=== PATIENT | male | born 1955 | race African-American/Black ===

== ENCOUNTER 2021-04-01 13:32 | Inpatient (IN) | payer MEDICARE, SELFPAY ==
[2021-04-01] VITALS (10 sets, daily range): BP systolic 139–175; BP diastolic 73–90; PULSE 63–97; RESP 15–20; TEMP 36.7–37.2; O2SAT 96–100; BMI 28.0
--- NOTE | ~2021-04-01 | CT_ITS ---
EXAMINATION: CTA chest abdomen pelvis DATE: 04/01/2021 15:53 INDICATION: Chest and abdominal pain TECHNIQUE: Computed tomographic angiography (CTA) of the chest, abdomen, and pelvis was performed wit h 200 mL Omnipque-350 intravenous contrast. Maximum intensity projection 3D-reconstructions of the ao rta and other arteries were constructed by the technologist on a separate workstation. The dose-lengt h product (DLP) was 1050.13 mGy-cm. Automated exposure control and iterative reconstruction technique were employed. COMPARISON: None. FINDINGS: CHEST CTA: There is no aneurysm or dissection of the thoracic aorta. Calcified atherosclerosis is noted. There i s dependent atelectasis. No pleural effusion or pneumothorax is identified. No pathologically enlarge d thoracic lymph nodes are identified. The heart size is normal. There is mild thoracic spondylosis. ABDOMEN AND PELVIS CTA: There is no aneurysm or dissection of the abdominal aorta. There is calcified atherosclerosis of the aorta and many of the other arteries. The celiac axis, superior mesenteric artery, and inferior mesen teric artery are unremarkable. Single renal arteries are present bilaterally. Punctate calcifications in otherwise normal appearing liver and spleen likely represent healed granulomatous disease. The pa ncreas, gallbladder, and adrenal glands are normal. The kidneys are unremarkable. No pathologically e nlarged abdominal or pelvic lymph nodes are identified. There is no free intraperitoneal gas or evide nce of bowel obstruction. The appendix is normal. There is severe lumbar spondylosis. IMPRESSION: 1. No dissection or aneurysm of the thoracic or abdominal aorta. Reviewed, dictated and finalized at location A. ENT ACCOUNTS COORDINATOR
--- NOTE | ~2021-04-01 | MR_ITS ---
EXAMINATION: MR brain/brain stem wo/w con DATE: 04/02/2021 12:56 INDICATION: Right hemiparesis. TECHNIQUE: Magnetic resonance imaging (MRI) of the brain and brainstem was performed without and with 17 mL MultiHance intravenous contrast. Sequences included sagittal and axial T1-weighted FSE, axial diffusion-weighted FS EPI, axial T2*-weighted GRE, axial T2-weighted FLAIR Propeller, and axial T2-we ighted Propeller. Postcontrast sequences included axial and coronal T1-weighted FSE. Apparent diffusi on coefficient (ADC) maps were created. COMPARISON: Head CT 04/01/2021 FINDINGS: There are patchy infarcts involving the left frontal, parietal, and occipital lobes charact erized by decreased ADC. Some of the infarcts demonstrate contrast enhancement. There is no intracran ial hemorrhage or abnormal mass lesion. The ventricles are normal in size. There are scattered areas of nonspecific increased T2-weighted signal intensity in the cerebral white matter. The orbits are no rmal. The mastoid air cells are normal. There is mild mucosal thickening in the ethmoid sinuses. IMPRESSION: 1. Patchy acute and subacute infarcts in the left frontal, parietal, and occipital lobes. 2. Moderate nonspecific cerebral white matter disease, which likely represents chronic small vessel i schemic disease. Reviewed, dictated and finalized at location A. P CLERK IMPRESSION: 1. Patchy acute and subacute infarcts in the left frontal, parietal, and occipi khushbu lobes. 2. Moderate nonspecific cerebral white matter disease, which likely represents chronic small vessel ischemic disease.
--- NOTE | ~2021-04-01 | CT_ITS ---
EXAMINATION: CTA brain carotid DATE: 04/01/2021 15:52 INDICATION: Right upper and lower extremity weakness TECHNIQUE: Computed tomographic angiography (CTA) of the head was performed without and with 100 mL O mnipaque-350 intravenous contrast. CTA of the neck was performed with intravenous contrast. The dose- length product was 1687.07 mGy-cm. Maximum intensity projection and volume rendered 3D-reconstruction s were created by the technologist on a separate workstation. Automated exposure control and iterativ e reconstruction technique were employed. COMPARISON: None. FINDINGS: HEAD CTA: There is subtle low attenuation of the left garcia radiata. A focal area of aquino-white eliane er differentiation loss is seen in the left frontal lobe. There is no intracranial hemorrhage or abno rmal mass lesion. The ventricles are normal. There is no abnormal mass effect or midline shift. The b scar cisterns are patent. The orbits are normal. The paranasal sinuses, mastoids and calvarium are no rmal. There is no significant stenosis of the basilar artery or posterior cerebral arteries. There is no si gnificant stenosis of the intracranial internal carotid arteries or the anterior or middle cerebral a rteries. The anterior communicating artery and right posterior communicating arteries are normal. The left posterior communicating artery is diminutive. There is no aneurysm. NECK CTA: The thyroid gland is unremarkable. The submandibular and parotid glands are symmetric. Ther e is no lymphadenopathy. There are no masses identified. The airway is unremarkable. There is moderat e to severe lower cervical spondylosis.. The superior mediastinum is unremarkable. There is 0% stenosis of the proximal right internal carotid artery relative to normal distal artery l umen diameter (NASCET criteria). There is 0% stenosis of the proximal left internal carotid artery re lative to normal distal artery lumen diameter. IMPRESSION: 1. Findings suggestive of subtle acute infarct in the left frontal lobe. Unremarkable CTA. 2. 0% stenosis of the proximal right internal carotid artery relative to normal distal artery lumen d iameter (NASCET criteria). 3. 0% stenosis of the proximal left internal carotid artery relative to normal distal artery lumen di ameter. These findings were discussed with Dr. Kehinde Garcia MD in the Emergency Department at 1624 hours on 04/01/2021. Reviewed, dictated and finalized at location A. LABORER IMPRESSION: 1. Findings suggestive of subtle acute infarct in the left frontal lobe. Unrema rkable CTA. 2. 0% stenosis of the proximal right internal carotid artery relative to normal distal artery lumen diameter (NASCET criteria). 3. 0% stenosis of the proximal left internal carotid artery relative to normal distal artery lumen diameter. These findings were discussed with Dr. Kehinde Garcia MD in the Emergency Depar tment at 1624 hours on 04/01/2021.
--- NOTE | 2021-04-01 14:09 | ECG_ITS ---
Measurements Intervals [place] Rate: 63 P: -32 MO: 119 QRS: -38 QRSD: 181 T: 84 QT: 506 QTc: 521 Interpretive Statements SINUS RHYTHM WITH SHORT MO INTERVAL LEFT AXIS DEVIATION RIGHT BUNDLE BRANCH BLOCK LEFT VENTRICULAR HYPERTROPHY AND ST-T CHANGE BASELINE ARTIFACT- I, II, III, AVR, AVL, AVF, V1-V6 ABNORMAL ECG Electronically Signed On 04-01-2021 15:16:21 EMPLOYMENT AND CLAIMS AIDE by Trevor Rangel D.O.
--- NOTE | 2021-04-01 14:11 | ED.NEUROSD ---
HPI - Neuro Symptoms/Deficit General Chief Complaint: Suspected CVA Stated Complaint: think i had a little stroke on Saturday Time Seen by Provider: 04/01/21 13:51 Source: patient Mode of arrival: ambulatory Limitations: no limitations History of Present Illness HPI Narrative: 65-year-old male History of high blood pressure and high cholesterol Here for evaluation of new weakness in his right arm and to a lesser extent in his right leg which he first noticed upon waking up Saturday morning, 4 days ago He reports he is lost a lot of strength in his right shoulder and lost dexterity in his hand and feels like he might have a little bit of tingling in his 2 smallest fingers He also notices that his gait has gotten somewhat worse that he is walking with a limp It sounds like he was seen on Saturday afternoon and at that time the leg was less of an issue, and he was prescribed steroids for a possible neck issue He said on Saturday and Saturday that he had severe back pain as well, which is now largely resolved, he did not take anything specific for it He does not think that he could have injured it, he says that the heaviest thing he ever has to lift at work is small empty cardboard boxes He came to the ER today because of the worse issues with walking and lack of improvement in his weakness He does not have a headache Related Data Allergies Allergy/AdvReac Type Severity Reaction Status Date / Time quinine Allergy Unknown Verified 04/01/21 13:37 Review of Systems Review of Systems: All systems reviewed & are unremarkable except as noted in HPI and below Constitutional: Constitutional: Reports no additional constitutional complaints, Denies chills, Denies fever(s) and Denies headache(s) Eyes: Eyes: Reports no additional eye complaints, Denies change in vision and Denies diplopia ENT: Denies headache(s) and Denies sore throat Cardiovascular: Cardiovascular: Denies chest pain and Denies dyspnea Respiratory: Respiratory: Denies cough and Denies dyspnea Gastrointestinal: Gastrointestinal: Denies abdominal pain, Denies diarrhea and Denies vomiting Genitourinary: Genitourinary: Denies dysuria and Denies urinary frequency Musculoskeletal: Musculoskeletal: Reports back pain, Denies deformity, Denies arthralgias, Denies joint swelling and Denies numbness Integumentary/Breasts: Skin/Breast: Denies rash and Denies wounds Neurologic: Denies headache(s), Reports focal weakness, Denies loss of vision, Denies numbness and Reports paresthesias Psychiatric: Psychiatric: Reports no additional psychiatric complaints Endocrine: Endocrine: Reports no additional endocrine complaints Hematologic/Lymphatic: Hematologic/Lymphatic: Reports no additional hematologic/lymphatic complaints Allergic/Immunologic: Allergic/Immunologic: Reports no additional allergic/immunologic complaints Exam Const: General: cooperative and no acute distress Orientation/consciousness: patient oriented x3 (alert) HENMT: Head: normal to inspection, normocephalic and atraumatic Ears: external ears normal General nose exam: no epistaxis Eyes: Conjunctivae: conjunctivae normal EOM: EOMs intact bilaterally Neck: Neck: normal visual inspection, supple, no JVD and other (No bruit, no tenderness, no exacerbation of symptoms with neck movements) Resp: Effort & Inspection: normal respiratory effort and not labored Auscultation: clear to auscultation bilaterally, no rales, no rhonchi, no wheezes and other (BS =) Cardio: Rate: regular rate Rhythm: regular rhythm Heart sounds: no murmurs GI: GI Palp: Yes Soft to palpation and No Tenderness to palpation present (GI) Skin: General skin exam: normal color and no rashes or lesions noted Neuro: General: patient oriented x3 (alert) and moves all extremities Cranial nerves: Yes facial symmetry Speech: normal speech Motor exam (neuro): Abnormal motor strength present Other: Right upper extremity has proximal grea
[2021-04-01 14:43] LABS: Basophils Percent Auto 0.4 % (0.2-1.2); Eosinophils Percent Auto 0.2 % (0-4.4); Hematocrit 44.6 % (42.0-52.0); Hemoglobin 15.8 g/dL (14.0-18.0); Immature Granulocyte Absolute 0.03 K/mm3 (0.00-0.031); Immature Granulocyte Percent A 0.4 % (0-0.5); Lymphocytes Absolute Auto 0.88 K/mm3 (0.9-3.2); Lymphocytes Percent Auto 10.7 % (18.3-44.2); Mean Corpuscular HGB Conc 35.4 g/dl (32-36); Mean Corpuscular Hemoglobin 30.9 pg (26-34); Mean Corpuscular Volume 87.1 fl (80-100); Mean Platelet Volume 10.9 fl (7.4-10.4); Monocytes Absolute Auto 0.3 K/mm3 (0.1-0.6); Monocytes Percent Auto 3.3 % (2.6-8.5); Platelet Count Result 259 k/mm3 (150-375); Red Blood Count 5.12 M/mm3 (4.6-6.20); Red Cell Distribution Width 12.1 % (11.5-14.5); White Blood Count 8.3 K/mm3 (4.5-10.0)
[2021-04-01 14:49] LABS: Alanine Aminotransferase 47 U/L (4-50); Albumin Level 4.7 g/dL (3.5-5.1); Alkaline Phosphatase 106 U/L (38-126); Anion Gap 12 mmol/L (8-16); Aspartate Amino Transferase 39 U/L (17-59); Bilirubin,Total 0.6 mg/dL (0.2-1.3); Blood Urea Nitrogen 14 mg/dL (9-20); Carbon Dioxide 23 mmol/L (22-30); Chloride 106 mmol/L (98-107); Estimated CRCL calculation 59 ml/min; Estimated Glomerular Filt Rate > 60; Glucose 215 mg/dL (65-110); Potassium 3.8 mmol/L (3.4-5.0); Sodium 141 mmol/L (137-145)
--- NOTE | 2021-04-01 18:00 | PM.IMHP ---
H&P: HPI History of Present Illness Date/Time: 04/01/21 18:00 Chief Complaint: Right arm weakness. Narrative: This is a very pleasant 65-year-old male with hypertension and dyslipidemia who presented to the emergency department earlier today via private vehicle from home for evaluation of right arm weakness. He awoke from sleep on Saturday (4 days ago) with weakness in his right arm and hand as well as mild paresthesias and loss of dexterity. He also noticed that his right leg seemed to be a bit ?off? as well and he has been walking with a slight limp since that time. He was seen by his primary care provider the following day and there were concerns that he possibly had a cervical radiculopathy (his leg was less of an issue at that time). He was prescribed a Medrol Dosepak which he was unable to fill until yesterday as he had to save up some money for the co-pay. Unfortunately his symptoms have not improved and he came in today for evaluation. CTA of the head and neck showed findings suggestive of a subtle acute infarct in the left frontal lobe and he is being admitted in this setting. He admits that his blood pressures have been difficult to control although he thought with his current regimen that they had been more controlled. He denies headache, vertigo, auditory and visual changes, dysphagia, facial droop, and dysarthria. He denies palpitations. No history of cardiac dysrhythmia. Review of Systems Review of Systems: Twelve systems were reviewed. No fever, chills, or sweats. No recent cold or flu symptoms. Patient was having pretty significant mid to low back pain on Saturday and , not related to an injury, but that has since improved. No exertional chest pain or shortness of breath. No lower extremity paresthesias or saddle anesthesia. No history of diabetes. Denies blurry vision, polydipsia, and polyuria. No history of alcohol withdrawal symptoms. Except as documented, all other systems were reviewed and are negative. [facility] Past Medical History Medical History (Updated 04/01/21 @ 22:54 by Angelique Shaw PA-C) Asthma Dyslipidemia Gastroesophageal reflux disease Hypertension Surgical History Surgical History (Updated 04/01/21 @ 22:51 by Angelique Shaw PA-C) No history of previous surgery Family History Family History (Updated 04/01/21 @ 22:51 by Angelique Shaw PA-C) Mother , Mother in her sleep at age 51 of unknown causes. Asthma Father No problems noted. Social History Social History (Updated 04/01/21 @ 22:52 by Angelique Shaw PA-C) Social History: Surrogate decision maker: Joe Gray, srinivasa. Code status: Full code. Smoking status: Never smoker Alcohol intake: current Drinks per week: 21 Substance use: never Additional living arrangements comments: The patient lives in his own home. Meds Home Medications and Allergies Home Medications Medication Instructions Recorded Confirmed Type amlodipine 10 mg PO DAILY 04/01/21 04/01/21 History atorvastatin 10 mg PO DAILY 04/01/21 04/01/21 History calcium carbonate 600 mg PO Q6-8H PRN 04/01/21 04/01/21 History losartan 100 mg PO DAILY 04/01/21 04/01/21 History metoprolol succinate 100 mg PO DAILY 04/01/21 04/01/21 History Allergies Allergy/AdvReac Type Severity Reaction Status Date / Time quinine Allergy Unknown Verified 04/01/21 13:37 Vital Signs Vital Signs - 24 hr 04/01/21 13:33 04/01/21 14:05 04/01/21 14:34 Temperature 98.9 F Pulse Rate 97 Respiratory Rate 17 Blood Pressure 175/90 H Pulse Oximetry 100 96 98 04/01/21 14:53 04/01/21 15:01 04/01/21 19:31 Temperature Pulse Rate 78 87 93 Respiratory Rate 18 20 15 Blood Pressure 168/78 H 139/74 158/88 H Pulse Oximetry 99 99 97 04/01/21 20:18 04/01/21 20:30 04/01/21 21:43 Temperature 98.0 F 98.4 F Pulse Rate 71 71 71 Respiratory Rate 18 18 18 Blood Pressure 147/88 H 140/78 149/73 H Pulse Oximetry 99 9
--- NOTE | 2021-04-01 18:43 | ECG_ITS ---
Rate 63 SD 179 QRSd 78 QT 387 QTc 399 --[place]-- P 60 QRS 16 T -60 SINUS RHYTHM T WAVE ABNORMALITY IN ANT/INF LEADS- CONSIDER ISCHEMIA BASELINE ARTIFACT- I, II, AVR, AVF, V1, V4-V6 ABNORMAL ECG Electronically Signed On 04-03-2021 8:33:45 SHELL SIEVE OPERATOR by Trevor ROGERS
--- NOTE | 2021-04-01 19:28 | PC.NURSE ---
Bedside report given by Miryam LUNDBERG at this time, pt is alert and upright on stretcher, discussed POC. Pt has box lunch at bedside and is eating.
--- NOTE | 2021-04-01 20:26 | PC.NURSE ---
This patient, Gregg Gray, was admitted to [facility] Surg Room 321-01 @2024 Patient/family oriented to hospital policies and general routines including ID bracelet, bed and alarms, visiting hours, pain management, procedures, bathroom and other care routines, personal items, smoking policy, room service/diet, and visiting hours. Information on how to activate the Rapid Response Team has been discussed. Patient/Family are encouraged to report perceived risks to care and to ask questions if they do not understand what they are told or what they should do.
[2021-04-02] VITALS (8 sets, daily range): BP systolic 127–154; BP diastolic 74–78; PULSE 53–80; RESP 12–18; TEMP 36.8–36.9; O2SAT 98–100
[2021-04-02 06:31] LABS: Anion Gap 8 mmol/L (8-16); Blood Urea Nitrogen 12 mg/dL (9-20); Calcium 9.7 mg/dL (8.4-10.2); Carbon Dioxide 26 mmol/L (22-30); Chloride 108 mmol/L (98-107); Cholesterol 137 mg/dL (0-200); Estimated CRCL calculation 59 ml/min; Estimated Glomerular Filt Rate > 60; Glucose 142 mg/dL (65-110); HDL Direct 29 mg/dL; Magnesium 2.5 mg/dL (1.6-2.3); Potassium 3.5 mmol/L (3.4-5.0); Sodium 142 mmol/L (137-145); Triglycerides 149 mg/dL (<150)
[2021-04-02 06:42] LABS: LDL Cholesterol Direct 80 mg/dL
[2021-04-02 08:16] LABS: Hemoglobin A1C 6.6 % (<5.7)
--- NOTE | 2021-04-02 09:31 | WPDNEURCNPN ---
Assessment and Plan Additional Plan 65 years old with right-sided neuro deficit, CTA negative, chest and abdomen pelvis CTA negative, brain MRI is awaited and so as the echocardiogram in the meantime treatment will be continued as ordered once the MRIs done further recommendation will be made likely diagnosis is left hemispheric stroke versus the possibility of cervical myelopathy versus external compression of the right radial nerve Consult date: 04/02/21 HPI: Gregg Gray is a 65 year old male[facility] for the complaints of right upper extremity weakness. Patient brought to the hospital emergency room with the ongoing history of 1. Hypertension 2. Dyslipidemia with the information that he awoke from sleep on Saturday that is 4 days ago with weakness in his right upper extremity along with the paresthesia and loss of dexterity additionally his right leg was also somewhat of and was limp initially he was seen by his primary care physician he received a Medrol Dosepak which she was unable to fill yesterday that is before he came to the emergency room for the symptomatology did not kimberlyn he came to the emergency room CTA of the head and neck revealed subacute infarct in left frontal lobe his blood pressure was difficult to control in the emergency room and he was admitted to the hospital for further evaluation patient does have ongoing history of 1. Bronchial asthma 2. Dyslipidemia 3. GERD 4. Hypertension, is never a smoker and drinks at least 21 drinks per week at home he has been taking amlodipine 10 mg daily atorvastatin 10 mg daily losartan 10 mg daily metoprolol 100 mg daily Review of Systems Review of Systems: All systems reviewed & are unremarkable except as noted in HPI and below PMFSH Past Medical History Medical History Asthma Dyslipidemia Gastroesophageal reflux disease Hypertension Surgical History Surgical History No history of previous surgery Family History Family History Mother , Mother in her sleep at age 51 of unknown causes. Asthma Father No problems noted. Social History Social History Social History: Surrogate decision maker: Joe Gray, srinivasa. Code status: Full code. Smoking status: Never smoker Alcohol intake: current Drinks per week: 21 Substance use: never Additional living arrangements comments: The patient lives in his own home. Meds Home Medications and Allergies Home Medications Medication Instructions Recorded Confirmed Type amlodipine 10 mg PO DAILY 04/01/21 04/01/21 History atorvastatin 10 mg PO DAILY 04/01/21 04/01/21 History calcium carbonate 600 mg PO Q6-8H PRN 04/01/21 04/01/21 History losartan 100 mg PO DAILY 04/01/21 04/01/21 History metoprolol succinate 100 mg PO DAILY 04/01/21 04/01/21 History Allergies Allergy/AdvReac Type Severity Reaction Status Date / Time quinine Allergy Unknown Verified 04/01/21 13:37 Vital Signs Vital Signs - 24 hr 04/01/21 13:33 04/01/21 14:05 04/01/21 14:34 Temperature 37.2 C Pulse Rate 97 Respiratory Rate 17 Blood Pressure 175/90 H Pulse Oximetry 100 96 98 04/01/21 14:53 04/01/21 15:01 04/01/21 19:31 Temperature Pulse Rate 78 87 93 Respiratory Rate 18 20 15 Blood Pressure 168/78 H 139/74 158/88 H Pulse Oximetry 99 99 97 04/01/21 20:00 04/01/21 20:18 04/01/21 20:30 Temperature 36.7 C Pulse Rate 63 71 71 Respiratory Rate 18 18 Blood Pressure 147/88 H 140/78 Pulse Oximetry 99 98 04/01/21 21:43 04/02/21 00:00 04/02/21 04:00 Temperature 36.9 C Pulse Rate 71 65 53 L Respiratory Rate 18 Blood Pressure 149/73 H Pulse Oximetry 100 04/02/21 05:26 Temperature 36.9 C Pulse Rate 59 L Respiratory
[2021-04-02] MEDS: ASPIRIN 81 MG ENTERIC TABLET PO (09:40)
[2021-04-02] MEDS: ATORVASTATIN 10 MG TABLET PO (09:40)
[2021-04-02] MEDS: METOPROLOL SUCCINATE EXT REL 100 MG TABCR PO (09:40)
[2021-04-02] MEDS: LOSARTAN POTASSIUM 100 MG TABLET PO (09:40)
[2021-04-02] MEDS: amLODIPine BESYLATE 5 MG TABLET 10 MG PO (09:40)
--- NOTE | 2021-04-02 16:06 | PM.DS ---
DS: Admitting Diagnosis Discharge Date April 02, 2021 Admitting Diagnosis Stroke with right-sided weakness DS: Discharge Diagnosis Discharge Diagnosis (1) Acute cerebrovascular accident: Code(s): I63.9 - Cerebral infarction, unspecified Status: Acute Assessment and Plan: The patient awoke from sleep on Saturday morning with right hand weakness, paresthesias, and coordination issues. 04/01 Probable stroke on brain CTA w/o signs of large vessel disease. Brain MRI confirmed right hemispheric strokes. 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 Admission he was hyperglycemic with blood sugar of 215 and blood pressure was 175/90. CTA of the brain suggested subtle acute infarct in the left frontal region. No large vessel occlusions were noted. CTA of the chest abdomen and pelvis revealed no dissection or aneurysm of the aorta or other vascular abnormalities. EKG showed normal sinus rhythm with left ventricular hypertrophy and repolarization abnormality. Hemoglobin A1c was 6.6. HDL cholesterol was 29 and LDL cholesterol 80. MRI of brain revealed: 1. Patchy acute and subacute infarcts in the left frontal, parietal, and occipital lobes. 2. Moderate nonspecific cerebral white matter disease, which likely represents chronic small vessel ischemic disease. Patient was treated with aspirin 81 mg daily with clopidogrel 75 mg daily to be added at discharge. Atorvastatin was intensified from 10 mg to 40 mg daily. Metformin 500 mg twice daily was added. His home antihypertensive regimen was continued and blood pressures drifted down to controlled to slightly elevated range on day of discharge. On day of discharge she was able to ambulate independently with with a right hemiparetic gait. He was alert and oriented to person place time and situation. Status at Discharge Functional status at discharge: independent ambulation Overall status at discharge: patient is not back to baseline Time Spent with Patient Time attestation: Total time spent providing and/or coordinating discharge services: Exam Narrative: General: Well-developed male sitting up in bed no distress. Weight: 86.3 kg. BMI: 28.1. HEENT: Normocephalic, atraumatic. PERRL, EOMI. Sclerae anicteric. Oral mucosa moist. Oropharynx clear. Neck: Supple. No carotid bruits. Respiratory: Lungs are clear to auscultation bilaterally. Cardiovascular: Regular rate and rhythm with S1-S2. Gastrointestinal: Abdomen is soft, nontender, and nondistended with positive bowel sounds. Skin: Warm and dry. No rash or lesions on limited exam. Extremities: No cyanosis, clubbing, or edema. Radial and pedal pulses intact. Neurological: Alert and oriented x4. Cranial nerves 2-12 are grossly intact. Speech is clear. No facial asymmetry. Strength is 3/5 right it coordinator, 4/5 proximal RUE, and 4/5 RLE. Gait right hemiparetic without assistive device. Psychiatric: Pleasant and cooperative with normal mood and affect. Judgment and insight intact. Ox4. DS: Data Data
[2021-04-02] MEDS: metFORMIN HCL 500 MG TABLET PO (16:58)
== END 2021-04-02 18:35 | disposition home or self-care (01) | DRG 66 ==
LOC: ANHED 18:35 → ANH3MEDSUR 20:03
PROVIDERS: Physician Assistant; Admitting Provider Internal Medicine; Emergency Provider Emergency Medicine; PCP Internal Medicine; Visit Provider Internal Medicine
DX: I63.9 Cerebral infarction, unspecified (principal); G83.21 Monoplegia of upper limb affecting right dominant side; R20.2 Paresthesia of skin; R27.8 Other lack of coordination; E11.9 Type 2 diabetes mellitus without complications; I10 Essential (primary) hypertension; E78.5 Hyperlipidemia, unspecified; J45.909 Unspecified asthma, uncomplicated; K21.9 Gastro-esophageal reflux disease without esophagitis; Z79.899 Other long term (current) drug therapy
CPT/HCPCS: 36415; 70496; 70498; 70553; 71275; 74174; 74175; 80048; 80053; 80061; 83036; 83735; 84443; 85025; 85610; 93005; 97161; 97165; 99285; A9270; A9577; Q9967

== ENCOUNTER 2021-12-11 08:59 | Emergency (ER) | payer MEDICARE, SELFPAY ==
--- NOTE | ~2021-12-11 | XR_ITS ---
XR lumbar spine min 4V 12/11/2021 12:02 Indication: Low back pain for 2 weeks Procedure: 5 views lumbar spine Comparison: No prior studies for comparison. Findings: There is moderate multilevel disc narrowing at all lumbar levels, most advanced at L4-5 and L5-S1. There are endplate degenerative changes at L3-4, L4-5 and L5-S1. There is moderate facet hype rtrophy in the lower 3 lumbar levels. No acute fracture or traumatic malalignment. No evidence for sp ondylolisthesis. There is mild dextrocurvature. Sacral foramen are symmetric. Impression: 1: Moderate-severe lumbar spondylosis. Reviewed, dictated and finalized at location A. Impression: 1: Moderate-severe lumbar spondylosis.
[2021-12-11 09:04] VITALS: BP 167/89; PULSE 57; RESP 16; TEMP 36.4; O2SAT 99
--- NOTE | 2021-12-11 09:32 | ED.BACK ---
HPI - Back Pain/Injury General Chief Complaint: Back Pain/Injury Stated Complaint: Back Pain for a week Time Seen by Provider: 12/11/21 09:02 Source: patient Mode of arrival: ambulatory Limitations: no limitations History of Present Illness HPI Narrative: Patient is a 66-year-old male who presents to the ED with report of left lower back/flank pain. Patient reports having pain for the past 1 week. He states the pain began while at work and he was bending over picking up empty boxes. He states he has had similar pain in the past with twisting abnormally. He has been using Aspercreme and capsaicin cream at home, in addition to Doans pills without much relief. Pain worse with movement. He does report increased urinary frequency, but denies dysuria, hematuria. No radiation of pain around to his abdomen. Denies any nausea or vomiting. No recent fevers or chills. No Hx of kidney stones. No weakness of BLE, numbness, saddle anesthesia, bowel/bladder incontinence. Related Data Home Medications Medication Instructions Recorded Confirmed amlodipine 10 mg tablet 10 mg PO DAILY 04/01/21 04/01/21 losartan 100 mg tablet 100 mg PO DAILY 04/01/21 04/01/21 metoprolol succinate 100 mg 100 mg PO DAILY 04/01/21 04/01/21 tablet,extended release 24 hr Allergies Allergy/AdvReac Type Severity Reaction Status Date / Time quinine Allergy Unknown Verified 12/11/21 09:11 Review of Systems Review of Systems: CONSTITUTIONAL: Denies fever, chills, or sweats. CARDIOVASCULAR: Denies chest pain. RESPIRATORY: Denies dyspnea. GASTROINTESTINAL: Denies abdominal pain, nausea, vomiting, incontinence. GENITOURINARY: Reports urinary frequency. Denies dysuria or hematuria, incontinence. MUSCULOSKELETAL: Reports left lower back pain. Denies joint pain, or myalgia. NEUROLOGIC: Denies headache, numbness, or weakness. All systems reviewed & are unremarkable except as noted in HPI and below PMFSH Past Medical History Medical History Asthma Dyslipidemia Gastroesophageal reflux disease Hypertension Surgical History Surgical History No history of previous surgery Family History Family History Mother , Mother in her sleep at age 51 of unknown causes. Asthma Father No problems noted. Social History Social History Social History: Surrogate decision maker: Joe Gray, srinivasa. Code status: Full code. Smoking status: Never smoker Alcohol intake: current Drinks per week: 21 Substance use: never Additional living arrangements comments: The patient lives in his own home. Exam Narrative: GENERAL: Well appearing, well-nourished, non-toxic, in no acute distress. HEAD: Normocephalic, atraumatic. NECK: Supple. No adenopathy, no masses. RESPIRATORY: Airway patent, respirations nonlabored. Clear to auscultation bilaterally, no rales, rhonchi, wheezing. CARDIOVASCULAR: Regular rate and rhythm without murmurs, rubs, or gallops. Peripheral pulses 2+ and equal bilaterally. ABDOMINAL: Soft, nontender, nondistended, no hepatosplenomegaly. Normoactive BS. No CVA tenderness to percussion. MUSCULOSKELETAL: Moves all extremities. Strength/ROM intact without gross deformities. Point tenderness to left-sided flank/lower back, around the level of L1. No midline thoracic or lumbar spinal tenderness. SKIN: Warm, dry, normal color. No rashes. NEURO: A&O X3. Speech clear. Cranial nerves II-XII grossly intact. Steady gait. No ataxic movements. PSYCHIATRIC: Appropriate mood and affect. Normal interaction. Course Vital Signs Vital signs: Vital Signs Temperature 97.5 F L 12/11/21 09:04 Pulse Rate 57 L 12/11/21 09:04 Respiratory Rate 16 12/11/21 09:04 Blood Pressure 167/89 H 12/11/21 09:04 Pulse Oximetry 99
[2021-12-11 09:59] LABS: Basophils Absolute Auto 0.1 K/mm3 (0.0-0.1); Basophils Percent Auto 1.4 % (0.2-1.2); Eosinophils Absolute Auto 0.3 K/mm3 (0-0.3); Eosinophils Percent Auto 4.7 % (0-4.4); Hematocrit 47.4 % (42.0-52.0); Hemoglobin 15.5 g/dL (14.0-18.0); Immature Granulocyte Absolute 0.02 K/mm3 (0.00-0.031); Immature Granulocyte Percent A 0.3 % (0-0.5); Lymphocytes Absolute Auto 2.03 K/mm3 (0.9-3.2); Lymphocytes Percent Auto 30.7 % (18.3-44.2); Mean Corpuscular HGB Conc 32.7 g/dl (32-36); Mean Corpuscular Volume 88.6 fl (80-100); Mean Platelet Volume 10.5 fl (7.4-10.4); Monocytes Absolute Auto 0.5 K/mm3 (0.1-0.6); Monocytes Percent Auto 7.4 % (2.6-8.5); Neutrophils Absolute Auto 3.7 K/mm3 (1.3-6.7); Neutrophils Percent Auto 55.5 % (45.5-73.1); Platelet Count Result 234 k/mm3 (150-375); Red Blood Count 5.35 M/mm3 (4.6-6.20); Red Cell Distribution Width 13.2 % (11.5-14.5); White Blood Count 6.6 K/mm3 (4.5-10.0)
[2021-12-11 10:09] LABS: Appearance Urine Clear (Clear); Bilirubin Urine Negative (Negative); Blood Urine Negative (Negative); Color Urine Yellow (Yellow); Glucose Urine UA Negative (Negative); Ketones Urine Negative (Negative); Leukocyte Esterase Ur Negative LEU/UL (Negative); Nitrate Urine Negative (Negative); Protein Urine Negative (Negative); Urobilinogen Urine 0.2 mg/dL (<2.0); pH Urine 5.5 (5.0-9.0)
[2021-12-11 10:18] LABS: Alanine Aminotransferase 36 U/L (6-50); Albumin Level 4.6 g/dL (3.5-5.1); Alkaline Phosphatase 97 U/L (38-126); Anion Gap 9 mmol/L (8-16); Aspartate Amino Transferase 30 U/L (17-59); Bilirubin,Total 0.5 mg/dL (0.2-1.3); Blood Urea Nitrogen 11 mg/dL (9-20); Calcium 10.1 mg/dL (8.4-10.2); Carbon Dioxide 25 mmol/L (22-30); Chloride 108 mmol/L (98-107); Estimated CRCL calculation 65 ml/min; Estimated Glomerular Filt Rate > 60; Glucose 120 mg/dL (65-110); Sodium 142 mmol/L (137-145)
[2021-12-11 10:39] LABS: Add Urine Microscopic? NO
[2021-12-11] MEDS: KETOROLAC 30 MG/ML VIAL (*BKC) IM (10:49)
[2021-12-11 11:27] VITALS: BP 134/83; PULSE 53; RESP 18; O2SAT 100
== END 2021-12-11 12:26 | disposition home or self-care (01) ==
PROVIDERS: Physician Assistant; Emergency Provider Emergency Medicine; PCP Internal Medicine
DX: S39.012A Strain of muscle, fascia and tendon of lower back, initial encounter (principal); J45.909 Unspecified asthma, uncomplicated; E78.5 Hyperlipidemia, unspecified; K21.9 Gastro-esophageal reflux disease without esophagitis; I10 Essential (primary) hypertension; M47.816 Spondylosis without myelopathy or radiculopathy, lumbar region; X50.1XXA Overexertion from prolonged static or awkward postures, initial encounter
CPT/HCPCS: 36415; 72110; 80053; 81003; 85025; 96372; 99283; J1885